=== PATIENT | male | born 1985 | race Two or more races ===

== ENCOUNTER 2022-09-30 13:42 | Emergency (ER) | payer OTHER ==
[~2022-09-30] VITALS: Ht 170.2 cm; Wt 127.0 kg
[2022-09-30] MEDS ORDERED: MOUNJARO12.5 MG/0. SQ (14:07)
== END 2022-09-30 18:17 | disposition home or self-care (01) ==
LOC: ER 13:42
DX: K62.5 Hemorrhage of anus and rectum (principal)